=== PATIENT | male | born 1945 | race Caucasian/White ===

== ENCOUNTER 2023-05-30 07:54 | Outpatient (REF) | payer MEDICARE, BC, SELFPAY ==
--- NOTE | ~2023-05-30 | XR_ITS ---
EXAMINATION: XR SHOULDER, LEFT CLINICAL INFORMATION: Pain in left shoulder COMPARISON: None available. TECHNIQUE: AP neutral and scapular Y views of the left shoulder. FINDINGS: The bones are intact. No fracture. Glenohumeral and acromioclavicular alignment is anatomic. There is narrowing of the subacromial space raising concern regarding impingement. There is mild degenerative change of acromioclavicular joint. There are large marginal osteophytes involving the inferior aspect of the humeral head and probable mild joint space narrowing. No abnormal soft tissue calcifications. XR/XR shoulder LT min 2V IMPRESSION: 1. No acute bony abnormality. 2. Question of impingement. 3. Degenerative change of the acromioclavicular and glenohumeral joints.
== END 2023-05-30 07:55 | disposition home or self-care (01) ==
LOC: HO.HOSX 07:54
PROVIDERS: Visit Provider Orthopaedic Surgery
DX: M25.512 Pain in left shoulder (principal)
CPT/HCPCS: 73030; 99202

== ENCOUNTER 2023-05-30 12:50 | Outpatient (AMB) | payer MEDICARE, BC, SELFPAY ==
--- NOTE | 2023-05-30 13:01 | A.OFFVIS_ITS ---
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 Hx of right shoulder surgery with Dr. Mao, believes it was about 3-4 yrs ago but is not certain, and left shoulder surgery many years ago with Dr. Bowie. Currently states he is having pain and difficulty lifting arm up. States its a little today but still has discomfort with certain movement. reports he has weakness as well. Denies numbness or tingling in hand. He has tried Tylenol and anti-inflammatory medicines which gave him only mild relief. Allergies No Known Allergies Allergy (Verified 05/30/23 13:16) Medication List - Last Reconciled 05/31/23 by Mohit Mao MD aspirin 81 mg PO DAILY diclofenac potassium 25 mg PO BID fluticasone propionate 50 mcg/actuation 1 spray intranasal DAILY losartan 25 mg PO DAILY metoprolol succinate ER 12.5 mg PO DAILY omeprazole 10 mg PO DAILY rosuvastatin 5 mg PO DAILY sertraline 150 mg PO DAILY tamsulosin 0.4 mg PO DAILY PFS Social History (Updated 05/30/23 @ 13:17 by Jen Norris [facility]) Current occupational status: retired Current occupation: right hand dominant Physical Exam Vital Signs: BMI result Body Mass Index 45.4 Const Other: Well-nourished well-developed very friendly male awake alert and oriented x3 in no acute distress Extrem Other: Bilateral upper extremity examination shows good capillary refill, no skin lesions noted, normal sensation light touch Left shoulder examination shows decreased range of motion when compared to his right shoulder, 4/5 strength with supraspinatus testing, positive impingement signs, tenderness over his acromioclavicular joint, no instability Results Reviewed Results Reviewed: X-rays of the patient's left shoulder show moderate diffuse glenohumeral joint degenerative changes, narrowing of the acromioclavicular joint and a type 2 acromion, no acute bony abnormalities Assessment & Plan Assessment & Plan (1) Left shoulder pain: Code(s): M25.512 - Pain in left shoulder Plan Mr. Fenton presents with left shoulder pain and weakness due to glenohumeral joint arthritis, acromioclavicular joint arthritis, impingement syndrome and possible full-thickness rotator cuff tearing. I had a lengthy discussion with the patient regarding the treatment options. At this point the patient's symptoms are improving with his home stretching program. We will hold off on a cortisone injection. The patient does not wish to get an MRI at this time. The do's and don'ts of lifting were discussed at length with the patient. He will follow up with me on an as-needed basis should his symptoms not plateau at an unacceptable level over the next few months. Feel free to call me at any time should questions regarding his orthopedic management arise. Thank you very much for asking me to see this very friendly gentleman. I spent 22 minutes in reviewing the patient's records and imaging studies, seeing the patient and documenting in the medical record. Orders: Orders XR shoulder LT min 2V 05/30/23 M25.512 - Pain in left shoulder Coding Level of Care Code New Pt Level 2 (07164) Diagnoses Left shoulder pain M25.512
[2023-05-30 13:17] VITALS: BMI 45.4
== END 2023-05-30 13:34 | disposition home or self-care (01) ==
PROVIDERS: PCP Internal Medicine; Visit Provider Orthopaedic Surgery
DX: M25.512 Pain in left shoulder (principal)
CPT/HCPCS: 99202